=== PATIENT | male | born 1975 | race Caucasian/White ===

== ENCOUNTER 2018-06-12 20:06 | Emergency (ER) | payer SELFPAY ==
[~2018-06-12] VITALS: Ht 165.1 cm; Wt 77.0 kg
[2018-06-12 20:12] VITALS: BP 136/78
== END 2018-06-12 20:30 | disposition left against medical advice (07) ==
LOC: ER 20:06
DX: R07.9 Chest pain, unspecified (principal); Z53.21 Procedure and treatment not carried out due to patient leaving prior to being seen by health care provider